=== PATIENT | male | born 1990 | race Caucasian/White ===

== ENCOUNTER 2022-12-17 16:31 | Emergency (ER) | payer OTHER ==
[2022-12-17 16:41] VITALS: BP 142/85; PULSE 106; RESP 18; TEMP 98.8; BMI 33.9
== END 2022-12-17 20:08 | disposition home or self-care (01) ==
LOC: JERFT 16:31
DX: Z76.0 Encounter for issue of repeat prescription (principal)
CPT/HCPCS: 99281-25